=== PATIENT | male | born 1935 | race Caucasian/White ===

== ENCOUNTER → 2017-10-30 | Day surgery (SDC) | payer OTHER, MEDICARE ==
[~2017-10-30] VITALS: Ht 177.8 cm; Wt 59.0 kg
--- NOTE | 2017-10-30 14:59 | Operative Report ---
Operative/Inv Procedure Report Surgery Date: 10/30/17 Name of Procedure: Open left inguinal hernia repair Pre-Operative Diagnosis: Left inguinal hernia Post-Operative Diagnosis: Same Estimated Blood Loss: scant Surgeon/Field Ironworker: Gokul SERRANO,Tyler Lopez/Alee FAY Anesthesia: laryngeal mask airway Implants: Parietex Pro spice miller hammer mill Operative Indication: 82-year-old male presents with left inguinal hernia for elective repair. He has prior prostatectomy Operative/Procedure Note Note: After informed consent, patient brought to the operating room and laid supine. Anesthesia was obtained and his groin is prepped and draped. Infiltrated the left groin with local anesthesia a transverse incision made through skin crease. We dissected through the subcutaneous tissues tissues and there was no superficial epigastric vein to divide.. We identified the fascia and delineated the inguinal canal with cautery. An incision along the fibers of the external oblique was then created sharply. Retractors were placed deeper. The cord structures were circumferentially dissected bluntly and a Linton drain placed around them. I then dissected the cremaster fibers and identified a moderate sized, chronically inflamed indirect hernia sac. It was dissected free from the cord structures and then reduced the perineal cavity. The tissues laterally were sutured with 2-0 Vicryl to keep the hernia reduced. I then placed a piece of Parietex Pro spice miller hammer mill into the cavity. It was unraveled and placed over the direct space and laterally wrapped around the cord to cover the indirect space. It was anchored at the pubic tubercle and along the shelving edge of the inguinal canal. Wound was irrigated with saline. Fascia was closed over the mesh with a running 3-0 Vicryl. The incision closed in 2 layers of 3-0 and 4-0 Vicryl sutures. Steri-Strips and sterile dressing applied. Sponge and needle counts are correct Findings: Indirect CC: Stacy SERRANO,Kevin Peres
== END ==
LOC: STS 02:22
DX: K40.90 Unilateral inguinal hernia, without obstruction or gangrene, not specified as recurrent (principal); Z85.46 Personal history of malignant neoplasm of prostate; Z90.79 Acquired absence of other genital organ(s)
CPT/HCPCS: C1781; J0690; J2250